=== PATIENT | male | born 1990 | race Two or more races ===

== ENCOUNTER 2022-08-23 14:52 | Emergency (ER) | payer SELFPAY ==
[2022-08-23 14:52] VITALS: BP 146/117; PULSE 94; RESP 16; TEMP 36.4; O2SAT 100; BMI 36.8
--- NOTE | 2022-08-23 15:06 | EX.ED.GENINJ ---
HPI <VIOLET Mata - Last Filed: 08/23/22 18:58> History of Present Illness Chief Complaint: Laceration Narrative Narrative: Patient presenting today with pain to his L big toe after a glass table fell over on top of it and broke earlier this afternoon. Patient is concerned due to a laceration on his L big toe. He is unsure of the last time he had a tetanus shot and is not on any blood thinners. He denies any other injury. PFSH <VIOLET Mata - Last Filed: 08/23/22 18:58> PFSH Medical History no medical history Home Medications oxycodone-acetaminophen 5 mg-325 mg tablet (Percocet) 1 tab PO Q8H PRN pain 5 days #8 tabs 08/23/22 [Rx Last Taken Unknown] Allergy/AdvReac Type Severity Reaction Status Date / Time No Known Allergies Allergy Verified 08/23/22 14:59 Surgical History no surgical history Social History Smoking Status: Never smoker ROS <VIOLET Mata - Last Filed: 08/23/22 18:58> ROS ED Constitutional Constitutional ED: Denies chills, fever(s) or sweats Eyes Eyes: Denies blurry vision or diplopia Cardiovascular Cardiovascular: Denies chest pain or palpitations Respiratory/Chest Respiratory/Chest: Denies cough or dyspnea Gastrointestinal Gastrointestinal: Denies abdominal pain, nausea or vomiting Musculoskeletal Musculoskeletal: Reports arthralgias; Denies back pain, myalgias or neck pain Integumentary Reports Abrasions; Denies abscess or rash Neurologic Neurologic: Denies confusion, dizziness or paresthesias Psychiatric Psychiatric: Denies anxiety, depression, suicidal ideation or suicidal thoughts EXAM <VIOLET Mata - Last Filed: 08/23/22 18:58> Physical Exam Const Vital Signs: 08/23/22 14:52 08/23/22 14:59 Temperature 97.6 F L Temperature Source Temporal Temporal Pulse Rate 94 Respiratory Rate 16 Blood Pressure 146/117 H Blood Pressure Mean 126 Pulse Ox 100 Oxygen Delivery Method Room Air Positive well nourished, well developed and no apparent distress General Appearance ED: well developed HEENT Reports normocephalic and head/scalp atraumatic Mouth ED: Yes moist mucous membranes normal Eyes PERRL and EOMs intact bilaterally Neck full ROM and supple Chest Wall inspection of chest normal Resp normal respiratory effort and clear to auscultation bilaterally Cardio regular rate and regular rhythm GI soft to palpation, non-tender, non-distended and no masses Back/Spine normal ROM and normal to inspection Extremity normal to inspection and full ROM Extremity Narrative: Left big toe has a 2 cm laceration right underneath the base of the toenail. DP pulses 2+ and equal bilaterally, good capillary refill, sensation intact. Pain with range of motion of the first left toe Neuro oriented x3, CN's II-XII intact bilaterally, moves all extremities, no focal motor deficits and no sensory deficits noted Sensorium / Orientation: awake and alert Psych mental status grossly normal and thought process normal <Dr. Faheem Rodriguez MD - Last Filed: 08/23/22 16:54> Physical Exam Const Vital Signs: 08/23/22 14:52 08/23/22 14:59 Temperature 97.6 F L Temperature Source Temporal Temporal Pulse Rate 94 Respiratory Rate 16 Blood Pressure 146/117 H Blood Pressure Mean 126 Pulse Ox 100 Oxygen Delivery Method Room Air [facility] <VIOLET Mata - Last Filed: 08/23/22 18:58> [facility] Narrative Medical decision making narrative: Patient presenting today with a superficial 2 cm laceration right below his L big toenail. This occurred earlier this afternoon when a heavy glass table fell on top of his toe and broke. Tetanus will be updated today. There is a small subungual hematoma to the left first toe with bleeding to the base of the toenail, the area does not require trephination. There is a nondisplaced tuft fracture of the left first toe. Topical let was applied and the area was cleaned and it was determined that the laceration did not need sutured as it was superficial. bacitracin ointment was applied and area was wrapped with a clean dry bandage. Patient was placed in a postop shoe. He was given a prescription for pain control. He has been given a podiatry follow-up. He will be discharged home in stable condition and is to follow-up with podiatry on Thursday. He is comfortable with plan. Radiography Diagnostic Testing: Clinical Impression(s) from Imaging Studies Foot X-Ray 03/25/23 15:15 IMPRESSION: Irregular mineralization of the first distal tuft versus tiny raymond of avulsed cortex. Electronically Signed: Douglas Jenkins MD at 16:03 EDT , Was reviewed and interpreted by attending ED physician. <Dr. Faheem Rodriguez MD - Last Filed: 08/23/22 16:54> MDM Radiography Diagnostic Testing: Clinical Impression(s) from Imaging Studies Foot X-Ray 08/23/22 15:15 IMPRESSION: Irregular mineralization of the first distal tuft versus tiny raymond of avulsed cortex. Electronically Signed: Douglas Jenkins MD at 16:03 EDT , Treatment and Re-Evaluation Narrative: Seen and evaluated independently and in conjunction with physician inside sales assistant. Agree with notes above unless documented otherwise. Patient states he was at [facility] and a glass table fell and landed on his left great toe. No other injuries. On exam, there is a laceration, it appears superficial, dorsally near the base of the nail, which is exposed but the nail is not loosened. It is attached to the nailbed with a small subungual hematoma but there is bleeding from the base of the nail, so trephination does not appear needed. Very tender distal phalanx. On x-ray, 3 views of the left foot were obtained and on my interpretation show a nondisplaced tuft fracture. Radiology in agreement. Plan is to locally anesthetize the area, with a let if it works well enough, so that we can cleanse it and reevaluated, repair laceration if needed I do not think the nail needs to be removed, and follow-up with podiatry with prescription for pain medications and a postop shoe. Discharge Plan Triage Chief Complaint: Laceration ED Midlevel Provider: Pina Payan ED Provider: Faheem Rodriguez Dx/Rx/DC Orders Clinical Impression: Closed displaced fracture of distal phalanx of left great toe, Laceration of left great toe with damage to nail Prescriptions: New oxycodone-acetaminophen [Percocet] 5-325 mg tablet 1 tab PO Q8H PRN (Reason: pain) 5 Days Qty: 8 0RF Primary Care Provider: Care Physician,No Primary Referrals: Vignesh Roach DPM [Med Staff - Active Staff] - As soon as possible Care Physician,No Primary [Primary Care Provider] - Activity Restrictions/Additional Instructions: 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 Rest, ice your toe several times a day for the next few days, keep it elevated. Return for any worsening of symptoms. Disposition Disposition: Home, Self Care Discharge Date/Time: 08/23/22 18:49
[2022-08-23] MEDS: Diphth,Pertuss(Acell),Tet Vac 0.5 ML Vial IM (15:15)
--- NOTE | 2022-08-23 15:15 | RAD_ITS ---
INDICATION: Trauma, heavy object fell on great toe with swelling and laceration distally EXAMINATION/TECHNIQUE: X-RAY - LEFT XR Foot Min 3 Views 3 VIEWS COMPARISON: None. FINDINGS: SOFT TISSUES: No soft tissue swelling or gas. No radiopaque foreign body. BONES/JOINTS: Irregular mineralization at the tip of the distal tuft medially versus tiny raymond of avulsed cortex. No other findings suspicious for acute bony abnormality identified. Joint spaces anatomically aligned. RAD/Foot min 3 Views IMPRESSION: Irregular mineralization of the first distal tuft versus tiny raymond of avulsed cortex. Electronically Signed: Douglas Jenkins MD at 16:03 EDT ,
[2022-08-23] MEDS: Lidocaine/Epi/Tetracaine 50 ML 1 APPLIC TOPICAL (17:06)
[2022-08-23] MEDS: Lidocaine 1% (20 ml mdv) 20 ML Vial 10 ML INFILT (17:06)
== END 2022-08-23 18:49 | disposition home or self-care (01) ==
PROVIDERS: Emergency Provider Emergency Medicine; Visit Provider Emergency Medicine
DX: S92.422A Displaced fracture of distal phalanx of left great toe, initial encounter for closed fracture (principal); S92.912A Unspecified fracture of left toe(s), initial encounter for closed fracture; W22.8XXA Striking against or struck by other objects, initial encounter; Y92.513 Shop (commercial) as the place of occurrence of the external cause
CPT/HCPCS: 73630; 90715; 99283